=== PATIENT | female | born 1980 | race Two or more races ===

== ENCOUNTER 2024-06-13 09:03 | Emergency (ER) | payer MEDICAID, SELFPAY ==
[2024-06-13 09:04] VITALS: BMI 30.4
[2024-06-13 09:24] VITALS: BP 152/109; BP 153/89; PULSE 85; RESP 18; TEMP 36.9; O2SAT 100
--- NOTE | 2024-06-13 09:24 | EKG_ITS ---
[facility] Test Date: 2024-06-13 Pat Name: LYN SANTOS Department: Room: - Gender: Female Talent Acquisition Coordinator: : 1980 Requested By: Emmanuel Riggs Order Number: [id number] Reading MD: Emmanuel Riggs Measurements Intervals Ware Rate: 71 P: 38 ND: 161 QRS: 79 QRSD: 86 T: 55 QT: 409 QTc: 446 Interpretive Statements SINUS RHYTHM Compared to ECG 04/03/2019 12:32:21 No significant changes /store/S0/[id number].pdf
--- NOTE | 2024-06-13 09:24 | XR_ITS ---
Examination: PA chest single view Technique: Upright PA chest single view Exam date and time: June 13, 2024 0938 hrs. Comparison April 03, 2019 Indications: Shortness of breath chest pain today. Findings: Normal heart size. Lungs are clear. The osseous structures are intact. Impression: No active disease
--- NOTE | 2024-06-13 09:37 | EDNOTE_ITS ---
ED Chest Pain RME/HPI General Chief Complaint: Chest Pain Stated Complaint: SOB/CXP WORSE WITH BREATHING TODAY Time Seen by Provider: 06/13/24 09:18 Arrival date/time: 06/13/24 09:03 RME / HPI RME / HPI narrative: This section includes all my notes and documentations, including HPI, PE, and ED course. Emmanuel Mcgee MD HPI: 43-year-old female here with several hours of intense fear, pounding and racing heart, sweating, chills, shaking, trouble breathing, chest tightness, stomach pain, nausea, numbness and tingling in the hands and feet and face, confusion, hot flashes, and feeling faint. Started after her woke her up with nightmare. No other complaints. ROS: All negative except as documented in HPI. Physical Exam: General: Alert and oriented. Appears anxious. Eyes: Conjunctivae and lids clear. ENT: No nasal congestion. Neck: Supple. Heart: RRR. Lungs: No respiratory distress. Good air movement. No rhonchi, wheezing, rales. Back: No CVA tenderness. Skin: Warm and dry. Neuro: Alert and oriented X 3. I reviewed all diagnostic test results. My interpretation of the EKG is sinus rhythm with no acute ST?T changes. My interpretation of the chest x-ray is no acute findings. Blood tests unremarkable, including negative troponin. At this point, diagnoses include anxiety. Treatment here included Xanax. Significant improvement noted. Recommended more outpatient cardiac workup. Based on my best medical judgment, made decision no further evaluation or treatment indicated at this time. Patient understands and agrees to the discharge instructions customized and printed, see below. Discharge instructions from Dr. Mcgee: 1. After extensive evaluation, there is no life-threatening condition.? Such as heart attack or pneumothorax (collapsed lung). 2. Your symptoms may be due to shock or stress or anxiety or nerves.? This is fairly common. 3. Take Xanax as needed.? Whether this helps or not will be valuable information to your private doctors. 4. See a private doctor on 06/15/2024. To make sure there is no serious underlying heart condition, ask to help you get more tests for your heart that cannot be done here in the ER.? Such as Holter Monitor (cardiac monitoring at home from a day to even a month), heart stress test (on treadmill or with medication), echocardiogram (imaging of your heart structures), heart catherization (checking for blockages in your heart arteries), and a referral to see a Building Materials Sales Attendant. 5. Seek immediate medical care with worsening or with any concerns.?? Emmanuel Mcgee MD Related Data Home Medications ?Medication ?Instructions ?Recorded ?Confirmed [id number] fumarate 18 1 tab-cap PO QAM 03/10/24 03/10/24 mg-FA 600 mcg-vit K 40 mcg capsule (Multi For Her) norethindrone 1 mg-ethinyl 1 tab PO DAILY 03/10/24 03/10/24 estradiol 20 mcg (21)-iron 75 mg (7) tablet (Blisovi Fe 06/22 (28)) Previous Rx's ?Medication ?Instructions ?Recorded alprazolam 0.5 mg tablet (Xanax) 0.5 mg PO BID PRN anxiety #10 tabs 06/13/24 Allergies Allergy/AdvReac Type Severity Reaction Status Date / Time No Known Allergies Allergy Verified 06/13/24 09:06 Course Quality Measures none Orders Category Date Time Status EKG (ED ONLY) *Do not use* NOW Care 06/13/24 09:24 Completed EKG (ED Only) Stat Exams 06/13/24 09:24 Ordered XR chest 1V portable Stat Exams 06/13/24 09:24 Completed CBC Stat Lab 06/13/24 09:45 Completed CMP [Comprehensive Metabolic Panel] Stat Lab 06/13/24 09:45 Completed Magnesium Stat Lab 06/13/24 09:45 Completed TSH [Thyroid Stimulating Hormone] Stat Lab 06/13/24 09:45 Completed Troponin I Stat Lab 06/13/24 09:45 Completed ALPRazoLAM [Xanax] Med 06/13/24 09:24 Discontinued 0.5 mg PO X1 ONE Vital Signs Vital signs: Vital Signs Temperature 98.4 F 06/13/24 09:24 Pulse Rate 85 06/13/24 09:24 Respiratory Rate 18 06/13/24 09:24 Blood Pressure 153/89 H 06/13/24 09:24 Pulse Oximetry (%) 100 06/13/24 09:24 Oxygen Delivery Method Room Air 06/13/24 09:24 Chest Pain Patient data External records reviewed:: [facility] previous records Clinical information provided by:: patient Social determinants that could affect healthcare access:: none Patient has the following chronic illnesses:: None How is presenting disease/condition affected by chronic disease/condition?: no chronic disease Evaluation data The following diagnostics were reviewed and interpreted by me:: lab results, radiology exam(s) and EKG tracing(s) (My interpretation of the EKG: NSR (71 bpm) with no ST-T changes. Emmanuel Mcgee MD) Lab and/or radiology exams considered but not ordered:: None Interpretation Summary: Anxiety Medications / Prescriptions Medications or Prescriptions considered but not ordered:: None Medication administrations:: Medication Administration History Discontinued Medications Alprazolam (Alprazolam 0.25 Mg Tablet) 0.5 mg PO X1 ONE Stop: 06/13/24 09:25 Last Admin: 06/13/24 10:11 Dose: 0.5 mg Documented By: ANJEL Morgan Consultations Consultation(s) initiated? (list below): No Diagnosis Chest Pain Differential Diagnosis: pneumothorax, stable angina, unstable angina pectoris, atypical chest pain, st elevation myocardial infarction, costochondritis, chest pain and other (Anxiety) Most likely diagnosis given after review of the tests above:: Anxiety Admission Indicated Admission indicated?: not indicated Explain why admission is indicated or not indicated:: Admission criteria not met Admission Request Was there a request for admission?: No Disposition Plan Disposition Plan: Discharge Discharge Attestation Discharge Attestation: The patient and all family members were given an opportunity to ask questions and understood the discharge instructions. Discharge instructions specifically effects, indications for sooner follow up or return to the emergency department, and the expected course of current diagnosis. Patient condition: Stable Discharge Plan Plan Patient Disposition: HOME (Self Care) Prescriptions/Referrals Prescriptions/Med Rec: New alprazolam [Xanax] 0.5 mg tablet 0.5 mg PO BID PRN (Reason: anxiety) Qty: 10 0RF No Action norethindrone-e.estradiol-iron [Blisovi Fe 06/22 (28)] 1 mg-20 mcg (21)/75 mg (7) tablet 1 tab PO DAILY Multi For Her 18 mg iron-600 mcg-40 mcg Capsule 1 tab-cap PO QAM Referrals: Doroteo Alvares MD [Primary Care Provider] - In 1 week Problem List Clinical Impression: Palpitations Patient/Caregiver Discharge Instructions Discharge Activity: activity as tolerated Education Materials: ED Anxiety Reaction, ED Palpitations, ED Panic Attack Additional Instructions: Discharge instructions from Dr. Mcgee: 1. After extensive evaluation, there is no life-threatening condition.? Such as heart attack or pneumothorax (collapsed lung). 2. Your symptoms may be due to shock or stress or anxiety or nerves.? This is fairly common. 3. Take Xanax as needed.? Whether this helps or not will be valuable information to your private doctors. 4. See a private doctor on 06/15/2024. To make sure there is no serious underlying heart condition, ask to help you get more tests for your heart that cannot be done here in the ER.? Such as Holter Monitor (cardiac monitoring at home from a day to even a month), heart stress test (on treadmill or with medication), echocardiogram (imaging of your heart structures), heart catherization (checking for blockages in your heart arteries), and a referral to see a Building Materials Sales Attendant. 5. Seek immediate medical care with worsening or with any concerns.?? Print Language: German Stand Alone Forms: [employer] Award Info., Patient Portal Info Letter
[2024-06-13 10:10] LABS: Basophils % (Auto) 1 % (0-2.5); Eosinophils # (Auto) 0.2 Thou/mm3 (0.0-0.5); Eosinophils % (Auto) 3 % (0-10); Hematocrit 40.3 % (36.0-46.0); Hemoglobin 13.7 g/dL (12.0-16.0); Immature Granulocytes % (Auto) 0 % (0-0); Immature Granulocytes Auto 0.02 Thou/mm3 (0.00-0.00); Lymphocytes # (Auto) 2.3 Thou/mm3 (1.0-4.8); Lymphocytes % (Auto) 33 % (10-50); Mean Corpuscular Hemoglobin 31.4 pg (25.0-35.0); Mean Corpuscular Volume 92 fL (80-100); Monocytes # (Auto) 0.6 Thou/mm3 (0.0-0.8); Monocytes % (Auto) 8 % (0-12); Neutrophils # (Auto) 3.9 Thou/mm3 (1.8-7.7); Neutrophils % (Auto) 55 % (37-80); Nucleated Red Blood Cell % 0 /100 WBC (0); Platelet Count 283 Thou/mm3 (140-440); RDW Standard Deviation 43.1 fL (36.4-46.3); Red Blood Count 4.36 Miln/mm3 (4.00-5.20); White Blood Count 7.1 Thou/mm3 (3.6-11.0)
[2024-06-13] MEDS: ALPRazoLAM 0.25 MG TABLET 0.5 MG PO (10:11)
[2024-06-13 10:33] LABS: Albumin/Globulin Ratio 1.8 (1.2-2.2); Alkaline Phosphatase 61 U/L (46-116); Anion Gap 3 (7-16); Aspartate Amino Transferase 11 U/L (0-34); BUN/Creatinine Ratio 11 Ratio (12-20); Bilirubin,Total 0.8 mg/dL (0.3-1.2); Blood Urea Nitrogen 9 mg/dL (9-23); Calcium 9.5 mg/dL (8.3-10.6); Calcium (Corrected) 9.5 mg/dL (8.5-10.1); Carbon Dioxide 30.2 mMol/L (20.0-31.0); Chloride 100 mMol/L (98-107); Creatinine (Component) 0.8 mg/dL (0.6-1.3); Estimated Creatinine Clearance 107.9 mL/min (>60); Globulin 3.4 gm/dL (2.3-3.5); Glucose 104 mg/dL (74-106); Magnesium 2.8 mg/dL (1.6-2.6); Osmolality,Calculated 265 (275-295); Potassium 4.1 mMol/L (3.4-5.1); Sodium 133 mMol/L (136-145); Thyroid Stimulating Hormone 1.68 uIU/mL (0.55-4.78); Total Protein 9.4 gm/dL (5.7-8.2); Troponin I < 0.002 ng/mL (0.0-0.045); eGFR > 60 See Note
[2024-06-13 10:35] LABS: Alanine Aminotransferase 16 U/L (10-49)
== END 2024-06-13 10:56 | disposition home or self-care (01) ==
PROVIDERS: Emergency Provider Emergency Medicine; PCP Family Medicine
DX: R00.2 Palpitations (principal)
CPT/HCPCS: 36415; 71045; 80053; 83735; 84443; 84484; 85025; 93005; 99283; A9270